=== PATIENT | male | born 1960 | race Caucasian/White ===

== ENCOUNTER 2020-08-18 08:32 | Day surgery (SDC) | payer BC, SELFPAY ==
[2020-08-18] VITALS (9 sets, daily range): BP systolic 122–156; BP diastolic 88–102; PULSE 61–95; RESP 16; TEMP 36.2–36.9; O2SAT 94–100; BMI 33.8
[2020-08-18] MEDS: Lactated Ringers 1,000 ML 100 ML IV (09:19)
--- NOTE | 2020-08-18 10:24 | PCM.HP.STD ---
History of Present Illness Date of Admission: 08/18/20 Chief Complaint: Right ureteral calculi The patient is a 60 year old male with a distal right ureteral calculi presents today for ureteroscopy laser and extraction of stone and still having pain in the right side he has not seen a stone. Past Medical History Allergies bee pollen Allergy (Verified 08/10/20 10:11) Anaphylaxis Penicillins Allergy (Verified 08/10/20 10:10) Swelling Home Medications: Ambulatory Orders Medication Instructions Recorded Ciprofloxacin [Cipro] 500 mg PO BID 08/10/20 Oxycodone HCl/Acetaminophen 1 ea PO Q6H PRN 08/10/20 [Oxycodone-Acetaminophen 5-325] Tamsulosin HCl [Flomax] 0.4 mg PO DAILY 08/10/20 Surgical History: no surgical history Smoking Status: Former smoker Tobacco Use: Non-smoker Review of Systems Constitutional: Denies: Chills, Fever, Weight Change HEENT: Denies: Head Aches, Sinus Congestion, Sinus Drainage Cardiovascular: Denies: Chest Pain, Palpitations Respiratory: Denies: Cough, Shortness of breath at rest, Sputum production Gastrointestinal: Denies: Abdominal Pain, Nausea, Vomiting Genitourinary: Denies: Dysuria Musculoskeletal: Denies: Joint Pain, Joint Tenderness Skin: Denies: Rash, Wounds Neurological: Denies: Numbness, Tingling, Focal weakness Psychiatric: Denies: Anxiety, Depression, Homicidal Ideations, Suicidal Ideations Hematologic/ Lymphatic: Denies: Easy Bruising, Easy Bleeding VTE Information - Inpt Only VTE Present on Admission: No - Physical Exam Vitals/I&O's: Vital Signs Temp Pulse Resp BP Pulse Ox 97.1 F L 72 16 156/96 H 98 08/18/20 09:02 08/18/20 09:58 08/18/20 09:02 08/18/20 09:58 08/18/20 09:02 Oxygen Delivery Method Room Air Weight: 97.976 kg Body Mass Index (BMI) 33.8 General: Alert, Oriented x3, Cooperative HEENT: Atraumatic, PERRLA, EOMI, Normocephalic Neck: Supple, No JVD, Negative Carotid Bruits Lungs: Clear to auscultation, Normal air movement Cardiovascular: Regular rate, No murmurs Abdomen: Bowel Sounds Present, Soft, Non Tender Extremities: No edema, Capillary Refill Less than 3 Seconds Skin: No rashes, No breakdown Musculoskeletal: No Tenderness to Palpation of Joints or Extremities Neurological: Cranial nerves II-XII grossly intact Psych/Mental Status: Normal Affect, Appropriate Current Medications Cefazolin Sodium 2 gm/ Sodium (Chloride) 110 mls @ 150 mls/hr IV PREOP ONE Stop: 08/18/20 11:13 Lactated Ringer's () 1,000 mls @ 100 mls/hr IV .Q10H JON Last Admin: 08/18/20 09:19 Dose: 100 mls/hr Documented by: Assessment/Plan Plan to proceed with right ureteroscopy laser of the stone removal of fragments possible stent.
[2020-08-18] MEDS: Ketorolac 15 MG/ML Vial IV (10:28)
--- NOTE | 2020-08-18 10:28 | PCM.DC.URO ---
Discharge Diet: No Restrictions, Light diet - advance as tolerated Discharge Activity: Return to Normal Activity, May Not Drive - for 2 days. Additional Activity Instructions:: Please be aware that pain medications may cause nausea. You should typically eat light foods as you take your pain medication. Pain medication may cause constipation, if this is a problem for you, please discuss with your doctor. Suture Line Care: Avoid Pulling/Pushing, Avoid Pinching/Bending Instructions: Treating Kidney Stones: Ureteroscopic Stone Removal Allergies/Adverse Reactions: Allergies bee pollen Allergy (Verified 08/10/20 10:11) Anaphylaxis Penicillins Allergy (Verified 08/10/20 10:10) Swelling Medications to take at Discharge Ciprofloxacin [Cipro] 500 mg PO BID 08/10/20 Oxycodone HCl/Acetaminophen [Oxycodone-Acetaminophen 5-325] 1 ea PO Q6H PRN 08/10/20 Tamsulosin HCl [Flomax] 0.4 mg PO DAILY 08/10/20 Ciprofloxacin [Cipro] 500 mg PO BID #6 tab 08/18/20 Hydrocodone/Acetaminophen [Hazen 5-325 Tablet] 1 each PO Q4H PRN PRN 5 Days #14 tablet 08/18/20 The following prescriptions were given: Ciprofloxacin [Cipro] 500 mg PO BID #6 tab Transmission Status: Pending to [facility]/pharmacy #[id number] Hydrocodone/Acetaminophen [Hazen 5-325 Tablet] 1 each PO Q4H PRN PRN 5 Days #14 tablet PRN Reason: Pain Score 1-10/10 Transmission Status: Received by [facility] #[id number] Primary Care Physician: Nani Terrazas DO [Primary Care Provider] - Test Results: Test results from this visit will be discussed in further detail at your follow-up appointment, if applicable. Please Follow Up With: Doc Mccarty MD When: in 2 weeks, please call to make an appointment.
[2020-08-18] MEDS: Cefazolin 2 GM in 0.9% Normal Saline 100 ML IV (10:29)
--- NOTE | 2020-08-18 10:52 | PCM.OPRPT ---
Report of Operation Date of Procedure: 08/18/20 Pre-Operative Diagnosis: Distal right ureteral calculi Post-Operative Diagnosis: Same Surgery/Procedure Performed:: Cystoscopy, balloon dilation of right ureter, right ureteroscopy. Description of Surgical Findings:: 60-year-old male was still having pain in the right side there is a recent CAT scan demonstrated a stone in distal right ureter still having pain off-and-on on the right side even required pain medicine in the preoperative area. So today working to proceed with ureteroscopy and laser of the stone we presume that he has not passed a stone. Patient was taken back to the operating room at some induction of general anesthesia he was placed in dorsolithotomy position when of the bladder with a 21 [place] rigid cystourethroscope once inside the bladder I cannulated the right ureter orifice with a Glidewire advanced a balloon dilator over the wire is a 12 [place]an centimeters balloon dilator balloon dilated the distal ureter I then went in with a semirigid ureteroscope went up as far as possible did not encounter any stone I then went over the wire with a flexible ureteroscope and I inspected all the way up to the kidney inspected the upper pole midpole lower pole the kidney worked my way all the way down the ureter there is no stone in the right collecting system no stone in the ureter. Since there was no stone he must the past it no stent was placed patient patient's bladder was drained anesthetic was reversed is taken back to PACU in good condition. Type of Anesthesia:: General Drains: none - Admit VTE Documentation VTE Present on Admission: No VTE Mechan Device Prophylaxis: SCD's
== END 2020-08-18 12:38 | disposition home or self-care (01) ==
LOC: SDC 08:33 → AC 08:33
PROVIDERS: Referring Provider Urology; Visit Provider Urology
PROC: 0TJ98ZZ Inspection of Ureter, Via Natural or Artificial Opening Endoscopic (ICD-10-PCS; CPT 52352; principal; 2020-08-18 10:30)
DX: N20.1 Calculus of ureter (principal); K44.9 Diaphragmatic hernia without obstruction or gangrene; N13.39 Other hydronephrosis; Z87.891 Personal history of nicotine dependence; Z79.899 Other long term (current) drug therapy; Z86.718 Personal history of other venous thrombosis and embolism
CPT/HCPCS: 00910; 52344; 87635; C9803; J7120; C1769; J2405; U0003

== ENCOUNTER → 2022-10-07 | Outpatient (CLI) | payer MEDICARE, SELFPAY ==
--- NOTE | 2022-10-07 12:12 | CT_ITS ---
STUDY: CT SOFT TISSUE NECK WITH CONTRAST REASON FOR EXAM: Male, 62 years old. Right-sided cervical swelling. Prior cervical spine fusion. RADIATION DOSAGE (If Supplied By Facility): CTDIvol = ( 19.32 ) mGy, DLP = ( 603.28 ) mGycm TECHNIQUE: The patient was scanned in a multi-detector CT scanner. High resolution transaxial imaging was performed following intravenous administration of IV 75mL Isovue-370. Sagittal and coronal images were reconstructed. Individualized dose optimization techniques were used for this CT. COMPARISON: None. FINDINGS: Normal bilateral parotid glands. Normal bilateral stock order lister spaces. Normal bilateral parapharyngeal spaces. Normal bilateral carotid spaces. There are multiple small submental lymph nodes. Normal bilateral sublingual and submandibular glands and spaces. Normal visualized nasopharynx. Normal retropharyngeal space. Normal perivertebral space. Normal visualized bilateral faucial tonsils. The visualized tongue, tongue base and oropharynx are normal. There are minimally enlarged lymph nodes of the neck, with preservation of normal lindsey architecture, consistent with a reactive lymph hyperplasia. There is no demonstrated solid or cystic mass lesion. There is no abnormal contrast enhancement. Normal epiglottis, bilateral vallecula and hypopharynx. The pre-epiglottic and paraglottic adipose spaces are normal. Normal visualized bilateral piriform sinuses, aryepiglottic folds, vocal cords, and arytenoid-cricoid articulations. Normal subglottic trachea. Normal bilateral lobes of the thyroid gland. Normal visualized pulmonary apices. Minimal calcific plaque at the origin of the left internal carotid artery. Normal visualized paranasal sinuses. Prior anterior fusion with screw and plate fixation device and prosthetic disc at the C3-C4 and C4-C5 levels. CT/Soft Tissue Neck WITH Contrast IMPRESSION: Small benign-appearing submental lymph nodes and supraclavicular lymph nodes. Prior anterior fusion at the C3-C4 and C4-C5 levels. Electronically Signed: Spencer Garrison MD at 14:41 EST ,
[2022-10-07 13:25] LABS: CREATININE FINGERSTICK < 0.9 mg/dL (0.70-1.30); EGFR FINGERSTICK > 60.0000 mL/min (>60)
== END | disposition home or self-care (01) ==
PROVIDERS: Referring Provider Otolaryngology; Visit Provider Otolaryngology
DX: R22.1 Localized swelling, mass and lump, neck (principal)
CPT/HCPCS: 70491; Q9967

== ENCOUNTER → 2025-08-22 | Outpatient (CLI) | payer MEDICARE, SELFPAY ==
--- OUTSIDE RECORDS SUMMARY | 2025-07-03 09:44 | XMS RPT_ITS ---
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 Name Role Phone JOSE SHEA, DR RIVER Bang Attending Unavailable ADRIANE BARTLETT, DR LUNA Primary Care Unavailable ADRIANE BARTLETT, DR LUNA Primary Care Unavailable ADRIANE BARTLETT, DR LUNA Attending Unavailable JANETT CHO DO Attending Unavailable ADRIANE BARTLETT, DR LUNA Primary Care Unavailable THEODORE DOBBINS DO Attending Unavailable ADRIANE BARTLETT, DR LUNA Primary Care Unavailable CORI MIMS Attending Unavailable LOBITO TINSLEY Referring Unavailable JEREMY FORREST Primary Care Unavailable PROBLEMS DATE TYPE CONDITION / CODE ATTENDING STATUS [facility] 07/03/2025 Unknown Headache, unspecified / R51.9(ICD-10) JANETT CHO DO Active [facility] 04/08/2025 Admitting Diagnosis 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 Automated exposure control, iterative reconstruction, and/or weight based adjustment of the mA/kV was utilized to reduce the radiation dose to as low as reasonably achievable. COMPARISON: None. HISTORY: ORDERING SYSTEM PROVIDED HISTORY: Reason for Exam: Headache, new onset FINDINGS: There is no intracranial hemorrhage, mass, mass effect or abnormal extra-axial fluid collection. No evidence of an acute territorial infarct. The ventricles are normal. The skull base and calvarium demonstrate no abnormality. There is mild mucosal thickening throughout the ethmoid air cells and right maxillary sinus. The mastoid air cells are clear. IMPRESSION: No acute intracranial abnormality. Paranasal sinus disease. Interpreted by: Jesu Redd MD Preliminary Report By: Jesu Redd MD Electronically signed By Jesu Redd MD Dictated Date: 07/03/2025 10:36:33 AM Prelim Date: 07/03/2025 10:38:24 AM Sign Date: 07/03/2025 10:38:24 AM Ordering Provider: JANETT CHO CBC Collected: 10:29 AM Status: F Source: [facility] TYPE CODE TESTS RESULT OUT OF RANGE REFERENCE UNITS LAB WBC(LOINC) WBC 5.4 4.5-10.8 10 3/mcL LAB RBCCT(LOINC) RBC 5.80 4.50-6.00 10 6/mcL LAB HGB(LOINC) Hgb 17.4 13.0-17.5 G/dL LAB HCT(LOINC) Hct 51.5 40.0-52.0 % LAB MCV(LOINC) MCV 88.9 81.0-100.0 fL LAB MCH(LOINC) MCH 30.1 27.0-33.0 pg LAB MCHC(LOINC) MCHC 33.8 32.0-36.0 G/dL LAB RDW(LOINC) RDW 13.9 11.5-15.5 % LAB PLT(LOINC) Platelet 371 150-450 10 3/mcL LAB MPV(LOINC) MPV 8.6 6.4-10.5 fL Performed By: #### HBSAG, HB CM, HBSAB, HCV1 #### [place] [address] #### [facility], [id number], CBC, HFP, ADIFF #### [address] [address] .AUTO DIFF Collected: 04/08/2025 10:29 AM Status: F Source: [facility] TYPE CODE TESTS RESULT OUT OF RANGE REFERENCE UNITS LAB COBY(LOINC) Neutrophil % 47.4 Low 50.0-75.0 % LAB LYM(LOINC) Lymphocyte % 33.3 20.0-40.0 % LAB MON(LOINC) Monocyte % 15.8 High 2.0-13.0 % LAB EO(LOINC) Eosinophil % 2.4 0.0-6.0 % LAB BAS(LOINC) Basophil % 1.1 0.0-2.5 % LAB ABLYM(LOINC) Lymphocyte, Absolute 1.8 0.9-4.3 10 3/mcL LAB REBECCA(LOINC) Monocyte, Absolute 0.9 0.1-1.4 10 3/mcL LAB AEOS(LOINC) Eosinophil, Absolute 0.1 0.0-0.7 10 3/mcL LAB ABAS(LOINC) Basophil, Absolute 0.1 0.0-0.3 10 3/mcL Performed By: #### HBSAG, HB CM, HBSAB, HCV1 #### [address] [address] #### [facility], 847227, CBC, HFP, ADIFF #### [place] [address] [place], [place] [address] .NEUABS Collected: 10:29 AM Status: F Source: [facility] TYPE CODE TESTS RESULT OUT OF RANGE REFERENCE UNITS LAB ANEU(LOINC) Neutrophil, Absolute 2.6 2.3-8.1 10 3/mcL Performed By: #### HBSAG, HB CM, HBSAB, HCV1 #### [address] [address] #### ANEU, 108743, CBC, HFP, ADIFF #### [address] [address] HFP Collected: 10:29 AM Status: F Source: [facility] TYPE CODE TESTS RESULT OUT OF RANGE REFERENCE UNITS LAB PROT(LOINC) Total Protein 7.3 6.4-8.2 G/dL LAB ALB(LOINC) Albumin Level 3.9 3.4-4.8 G/dL LAB GLB(LOINC) Globulin 3.4 2.7-4.4 G/dL LAB AG(LOINC) A/G Ratio 1.1 1.1-2.5 ratio LAB BILT(LOINC) Bili Total 0.6 0.2-1.0 mg/dL Result Comment: Use of this assay is not recommended for patients undergoing treatment with eltrombopag due to the potential for falsely elevated results. LAB BILAD(LOINC) Bili Direct 0.1 0.0-0.2 mg/dL Result Comment: Use of this assay is not recommended for patients undergoing treatment with eltrombopag due to the potential for falsely elevated results. LAB BILI(LOINC) Bili Indirect 0.5 mg/dL LAB AP(LOINC) Alk Phos 86 40-135 U/L LAB AST(LOINC) AST/SGOT 21 10-40 U/L LAB ALT(LOINC) ALT/SGPT 30 16-63 U/L Performed By: #### HBSAG, HB CM, HBSAB, HCV1 #### [place] [address] #### [facility], [id number], CBC, HFP, ADIFF #### [address] [address] HBSAG Collected: 10:29 AM Status: F Source: [facility] TYPE CODE TESTS RESULT OUT OF RANGE REFERENCE UNITS LAB HBSAG(LOINC) Hep B Surf Ag Non-Reactive Non-Reactive Performed By: #### HBSAG, HB CM, HBSAB, HCV1 #### [place] [address] #### [place], 868306, CBC, HFP, ADIFF #### [address] [address] HBSAB Collected: 10:29 AM Status: F Source: [facility] TYPE CODE TESTS RESULT OUT OF RANGE REFERENCE UNITS LAB HBSAB(LOINC) Hep B Surf Ab <3.1 Low >=10.0 mIU/mL Result Comment: 0 to < 10.0 mIU/mL Nonreactive Patient is considered not to have protective immunity to HBV infection >/= 10.0 mIU/mL Reactive Patient is considered to have protective immunity to HBV infection. This assay is traceable to the World Health Organization (WHO) Hepatitis B Immunoglobulin 1st International Reference Preparation (1976). The accepted criteria for immunity to HBV is anti-HBs activity >/= 10.0 mIU/mL, as defined by the WHO International Reference Preparation. Performed By: #### HBSAG, HB CM, HBSAB, HCV1 #### [place] [address] #### [facility], 585371, CBC, HFP, ADIFF #### [address] [address] HBCM Collected: 10:29 AM Status: F Source: [facility] TYPE CODE TESTS RESULT OUT OF RANGE REFERENCE UNITS LAB HBCM(LOINC) Hep B Core IgM Ab Non-Reactive Non-Reactive LAB HBCMINT(LOINC) Hep B Core IgM Ab Int Result Comment: Samples with a value < 0.80 Index are considered nonreactive (negative) for IgM antibodies to hepatitis B core antigen. See Interp Performed By: #### HBSAG, HB CM, HBSAB, HCV1 #### [place] [id number] #### [place], 960814, CBC, HFP, ADIFF #### [address] [address] HCV Collected: 5 10:29 AM Status: F Source: [facility] TYPE CODE TESTS RESULT OUT OF RANGE REFERENCE UNITS LAB HCV(LOINC) Hep C Ab Non-Reactive Non-Reactive LAB HCV1(LOINC) Hep C Ab Int Result Comment: Nonreactive: Samples with a value < 0.80 are considered nonreactive (negative) for antibodies to HCV. A negative test result does not exclude the possibility of exposure to or infection with HCV. HCV antibodies may be undetectable in some stages of the infection and in some clinical conditions. See Interp Performed By: #### HBSAG, HB CM, HBSAB, HCV1 #### [place] [address] #### [place], 684804, CBC, HFP, ADIFF #### [address] [address] QUANTTB Collected: 5 10:29 AM Status: F Source: [facility] TYPE [facility] RESULT OUT OF RANGE REFERENCE UNITS LAB 063827([facility]) QFT Criteria Comment Result Comment: QuantiFERON-TB Gold Plus is a qualitative indirect test for M tuberculosis infection (including disease) and is intended for use in conjunction with risk assessment, radiography, and other medical and diagnostic evaluations. The QuantiFERON-TB Gold Plus result is determined by subtracting the Nil value from either TB antigen (Ag) value. The Mitogen tube serves as a control for the test. LAB 072037(LOINC) QFT TB1 Ag Value 0.07 IU/mL LAB 414567(LOINC) QFT TB2 Ag Value 0.07 IU/mL LAB 670030(LOINC) QFT Nil Value 0.05 IU/mL LAB 354603(LOINC) QFT Mitogen Value >10.00 IU/mL LAB 328124(LOINC) QFT-TB Gold Plus Clt Inc Negative Negative Result Comment: No response to M tuberculosis antigens detected. Infection with M tuberculosis is unlikely, but high risk individuals should be considered for additional testing (ATS/IDSA/CDC Clinical Practice Guidelines, 2017). The reference range is an Antigen minus Nil result of <0.35 IU/mL. The specimen received for QuantiFERON testing was incubated by the ordering institution. Specific procedures outlined in our Directory of Services and in the package insert for the QuantiFERON Gold (In Tube) test must be followed to enable for proper stimulation of cells for the production of interferon gamma. Chemiluminescence immunoassay methodology Performed At: [facility] [id number] Joel Simeon PhD Ph:[phone] Performed By: #### HBSAG, HB CM, HBSAB, HCV1 #### [place] [address] #### ANEU, 303660, CBC, HFP, ADIFF #### [address] [address] CBC Collected: 10:19 AM Status: F Source: [facility] TYPE CODE TESTS RESULT OUT OF RANGE REFERENCE UNITS LAB WBC(LOINC) WBC 11.3 High 4.5-10.8 10 3/mcL LAB RBCCT(LOINC) RBC 5.37 4.50-6.00 10 6/mcL LAB HGB(LOINC) Hgb 16.1 13.0-17.5 G/dL LAB HCT(LOINC) Hct 46.9 40.0-52.0 % LAB MCV(LOINC) MCV 87.4 81.0-100.0 fL LAB MCH(LOINC) MCH 30.0 27.0-33.0 pg LAB MCHC(LOINC) MCHC 34.4 32.0-36.0 G/dL LAB RDW(LOINC) RDW 14.5 11.5-15.5 % LAB PLT(LOINC) Platelet 320 150-450 10 3/mcL LAB MPV(LOINC) MPV 8.1 6.4-10.5 fL Performed By: #### GFR, ADIF F, PSA, LIPID, CMP, CBC, TSH, ANEU #### [address] [address] .AUTO DIFF Collected: 01/07/2025 10:19 AM Status: F Source: [facility] TYPE CODE TESTS RESULT OUT OF RANGE REFERENCE UNITS LAB COBY(LOINC) Neutrophil % 66.2 50.0-75.0 % LAB LYM(LOINC) Lymphocyte % 21.1 20.0-40.0 % LAB MON(LOINC) Monocyte % 11.4 2.0-13.0 % LAB EO(LOINC) Eosinophil % 0.9 0.0-7.0 % LAB BAS(LOINC) Basophil % 0.4 0.0-2.5 % LAB ABLYM(LOINC) Lymphocyte, Absolute 2.4 0.9-4.3 10 3/mcL LAB REBECCA(LOINC) Monocyte, Absolute 1.3 0.1-1.4 10 3/mcL LAB AEOS(LOINC) Eosinophil, Absolute 0.1 0.0-0.7 10 3/mcL LAB ABAS(LOINC) Basophil, Absolute 0.0 0.0-0.2 10 3/mcL Performed By: #### GFR, ADIF F, PSA, LIPID, CMP, CBC, TSH, ANEU #### [address] [address] .NEUABS Collected: 10:19 AM Status: F Source: [facility] TYPE CODE TESTS RESULT OUT OF RANGE REFERENCE UNITS LAB ANEU(LOINC) Neutrophil, Absolute 7.5 2.3-8.1 10 3/mcL Performed By: #### GFR, ADIF F, PSA, LIPID, CMP, CBC, TSH, ANEU #### [address] [address] PSA Collected: 01/07/2025 10:19 AM Status: F Source: [facility] TYPE CODE TESTS RESULT OUT OF RANGE REFERENCE UNITS LAB PSA(LOINC) Prostate Specific Antigen 0.77 0.00-4.00 ng/mL Performed By: #### GFR, ADIF F, PSA, LIPID, CMP, CBC, TSH, ANEU #### [address] [address] TSH Collected: 10:19 AM Status: F Source: [facility] TYPE CODE TESTS RESULT OUT OF RANGE REFERENCE UNITS LAB TSH(LOINC) TSH 2.71 0.36-3.74 mcIU/mL Performed By: #### GFR, ADIF F, PSA, LIPID, CMP, CBC, TSH, ANEU #### [address] [address] CMP Collected: 01/07/2025 10:19 AM Status: F Source: [facility] TYPE CODE TESTS RESULT OUT OF RANGE REFERENCE UNITS LAB GLU(LOINC) Glucose Level 102 80-115 mg/dL LAB NA(LOINC) Sodium Level 139 136-145 mmol/L LAB K(LOINC) Potassium Level 3.5 3.5-5.1 mmol/L LAB CL(LOINC) Chloride 104 98-107 mmol/L LAB CO2(LOINC) CO2 25 23-31 mmol/L LAB EBAL(LOINC) Electrolyte Balance 10.0 4.0-15.0 mEq/L LAB BUN(LOINC) BUN 18 7-18 mg/dL LAB CRE(LOINC) Creatinine Lvl (s) 0.95 0.70-1.30 mg/dL Result Comment: Testing perf ormed on Siemens Dimension EXL analyzer using a modified kinetic Sury technique. LAB BC(LOINC) BUN/Creatinine Ratio 19 7-27 ratio LAB CA(LOINC) Calcium Lvl 9.0 8.4-10.2 mg/dL LAB PROT(LOINC) Total Protein 7.3 6.4-8.2 G/dL LAB ALB(LOINC) Albumin Level 4.0 3.4-4.8 G/dL LAB GLB(LOINC) Globulin 3.3 1.5-3.8 G/dL LAB AG(LOINC) A/G Ratio 1.2 1.1-2.5 ratio LAB BILT(LOINC) Bili Total 0.7 0.2-1.0 mg/dL Result Comment: Use of this assay is not recommended for patients undergoing treatment with eltrombopag due to the potential for falsely elevated results. LAB AP(LOINC) Alk Phos 65 40-135 U/L LAB AST(LOINC) AST/SGOT 17 10-40 U/L LAB ALT(LOINC) ALT/SGPT 18 16-63 U/L Performed By: #### GFR, ADIF F, PSA, LIPID, CMP, CBC, TSH, ANEU #### [address] [address] .GFR Collected: 10:19 AM Status: F Source: [facility] TYPE CODE TESTS RESULT OUT OF RANGE REFERENCE UNITS LAB eGFR(LOINC) Estimated Glomerular Filtration Rate 88 ml/min/1. 73sqm Result Comment: Stages of Chronic Kidney Disease (CKD) Stage Description eGFR(ml/min/1.73 sq.m.) CKD 1 Normal kidney function or >=90 normal kindney function with possible kidney damage (ex. Proteinuria) CKD 2 Kidney damage with mild loss 60-89 of kidney function CKD 3a Mild to moderate loss of kidney 45-59 function CKD 3b Moderate to severe loss of 30-44 of kindey function CKD 4 Severe loss of kidney function 15-29 CKD 5 Kidney failure <15 Note: (go live 2024) the eGFR calculation was updated to the 2020 CKD-EPI creatinine equation without a race factor to calculate the eGFR results. Performed By: #### GFR, ADIF F, PSA, LIPID, CMP, CBC, TSH, ANEU #### [address] [address] LIPID Collected: 01/07/2025 10:19 AM Status: F Source: [facility] TYPE CODE TESTS RESULT OUT OF RANGE REFERENCE UNITS LAB CHOL(LOINC) Cholesterol 199 0-200 mg/dL Result Comment: Cholesterol Reference Interval: Less than 200 Desirable 200-239 Borderline high risk 240 and above High risk LAB TRIG(LOINC) Triglycerides 62 0-150 mg/dL Result Comment: Triglyceride Reference Interval: Less than 150 Normal 150-199 Borderline high risk 200-499 High risk 500 or higher Very high risk LAB HD(LOINC) HDL Cholesterol 60 40-60 mg/dL LAB LDL(LOINC) LDL Cholesterol 127 0-130 mg/dL Performed By: #### GFR, ADIF F, PSA, LIPID, CMP, CBC, TSH, ANEU #### [place] [address] [place], [place] [address] NURSING PROG Observed: 09/29/2024 11:46 AM Status: COMPLETED Source: [facility] ID: [id number] Author: PILAR SULLIVAN RN Service: ? Author Type: Registered Nurse Type: Nursing Progress Note Filed: 09/29/2024 11:46 Note Text: Physician at bedside to discuss procedure/findngs with patient. KARTHIK POSTPROC EVAL Observed: 09/29/2024 11:44 AM Status: COMPLETED Source: [facility] HNO ID: [id number] Author: CARLIN GALLEGO APRN.CRNA Service: Anesthesiology Author Type: Nurse Dry Plasterer Type: Anesthesia Postprocedure Evaluation Filed: 09/29/2024 11:45 Note Text: POST ANESTHESIA EVALUATION NOTE : 1960 Procedure Summary Date: 09/29/24 Room / Location: Ambulatory Surgery Anesthesia Start: 1032 Anesthesia Stop: 1100 Procedures: EGD DIAGNOSTIC COLONOSCOPY DIAGNOSTIC Diagnosis: Abnormal weight loss History of colonic polyps (Weight loss) (Screening for colorectal malignant neoplasm) Scheduled Providers: Cori Mims MD Responsible Provider: Carlin Gallego APRN.CRNA Anesthesia Type: MAC ASA Status: 2 Anesthesia Type: MAC Last Vitals Vitals Value Taken Time BP 139/85 09/29/24 1116 Temp 36.3 ?C (97.4 ?F) 09/29/24 1100 Pulse 63 09/29/24 1116 Resp 16 09/29/24 1116 SpO2 96 % 09/29/24 1116 Post Anesthesia Patient Status Patient Evaluation: PACU. PACU/ICU Patient Condition: stable. Neurological Status: aware and responsive. Pulmonary Status: breathing comfortably on room air Airway Control: returned to baseline unsupported. Cardiovascular Status: stable. Pain Management: clinically adequate - multimodal analgesia pain management approach Postoperative Hydration: acceptable. Intraoperative Events: no significant anesthesia events Post Operative Nausea/Vomiting Status: no significant post operative nausea or vomiting Recommendation: continue current plan of care. Anesthesia Observations No Documentation SIGNATURE: Carlin Gallego APRN.RETAIL TIRE SALES MANAGER PATIENT NAME: Boston Banuelos DATE: September 29, 2024 TIME: 11:44 AM CSN: [id number] NURSING PROG Observed: 09/29/2024 11:18 AM Status: COMPLETED Source: [facility] HNO ID: [id number] Author: PILAR SULLIVAN RN Service: ? Author Type: Registered Nurse Type: Nursing Progress Note Filed: 09/29/2024 11:18 Note Text: Pt states readiness for discharge. Assisted with dressing. [id number] Observed: 09/29/2024 11:05 AM Status: COMPLETED Source: [facility] HNO ID: [id number] Author: PILAR SULLIVAN RN Service: ? Author Type: Registered Nurse Type: [id number] Filed: 09/29/2024 11:05 Note Text: The patient received a copy of Colonoscopy and EGD discharge instructions that contain information for how to contact the physician who performed the procedure and when to seek medical care. SURGICAL PATHOLOGY Collected: 10:38 AM Status: C Source: [facility] Order Comment: Specimen Type : TISSUE SPECIMEN Ordering Facility: [facility] Address: [address] [place] [address] TYPE CODE TESTS RESULT OUT OF RANGE REFERENCE UNITS PATHOLOGY [id number] CASE REPORT Result Comment: Surgical Pat hology Report Case: [id number] Authorizing Provider: Cori Mims MD Collected: 09/29/2024 10:38 AM Ordering Location: Ambulatory Surgery Received: 09/29/2024 09:17 PM Pathologist: Willy Shelton MD Specimens: A) - Small Bowel, Duodenum, Biopsy B) - Stomach, Biopsy C) - Esophagus, Biopsy D) - Colon, Transverse, Polyp E) - Colon, Descending, Polyp PATHOLOGY [id number] FINAL DIAGNOSIS Result Comment: A. Duodenum, biopsy: -Small intestinal mucosa with no diagnostic alteration -No evidence of celiac disease B. Stomach, biopsy: -Antral mucosa with no diagnostic alteration -No morphologic evidence of Helicobacter pylori C. Esophagus, biopsy: -Active esophagitis, see comment D. Transverse colon, polypectomy: -Tubular adenoma E. Descending colon, polypectomy: -Fragments of tubular adenoma OLOGY [id number] DIAGNOSIS COMMENT Given the presence of active esophagitis, stains for fungus and HSV will be obtained. The results will be reported in an addendum. PATHOLOGY [id number] GROSS DESCRIPTION Result Comment: A. Small [place] el, Duodenum, Biopsy Received in formalin is one piece of peters, soft tissue measuring 0.4 x 0.3 x 0.2 cm. Totally submitted in one cassette. B. Stomach, Biopsy Received in formalin are two pieces of peters, soft tissue aggregating to 0.8 x 0.3 x 0.2 cm. Totally submitted in one cassette. C. Esophagus, Biopsy Received in formalin is one piece of peters-white, soft tissue measuring 0.5 x 0.3 x 0.2 cm. Totally submitted in one cassette. D. Colon, Transverse, Polyp Received in formalin is one piece of peters-pink to red, soft tissue measuring 0.4 x 0.3 x 0.2 cm. Totally submitted in one cassette. E. Colon, Descending, Polyp Received in formalin are multiple pieces of peters, soft tissue aggregating to 1.7 x 0.5 x 0.2 cm. Totally submitted in two cassettes. Gross examination performed at [facility], [address] [place] [address] 09/29/2024 11:11 PM PATHOLOGY [facility] FINAL PERFORMING LAB Result Comment: Diagnostic i nterpretation performed at [facility], [address] [place] [address] CLIA# [id number] Torch Solderer: Dakota Bangura M.D. PATHOLOGY ADD1 ADDENDUM 1: Result Comment: On the esoph ageal specimen, stains for fungus (PAS) and HSV are both negative. Laboratory Developed Test (LDT) Disclaimer: Performance characteristics of immunohistochemical, immunofluorescent and chromogenic in-situ hybridization tests have been determined by the performing laboratory within [facility]???s Alvarado Santacruz Pathology and Laboratory Medicine Department ([facility], [facility], [facility], [facility], [facility], [facility], or [facility]) in a manner consistent with CLIA requirements. One or more of these tests have not been cleared or approved by the FDA. [facility] is regulated under CLIA as qualified to perform high-complexity testing. These tests are used for clinical purposes. They should not be regarded as investigational or for research. Positive and negative controls stain appropriately. Addendum electronically signed by Willy Shelton MD on 10/04/2024 at 5:11 PM Performed By: #### S #### [facility] CLIA [id number] [address] [place] [address] [id number], [place] [address] [place] HISTORY PHYSICAL Observed: 09/29/2024 10:30 AM Status: COMPLETED Source: [facility] HNO ID: [id number] Author: CORI MIMS MD Service: Gastroenterology Author Type: Physician Type: H&P Filed: 09/29/2024 10:08 Note Text: Endoscopy pre-operative HANDP HANDP completed prior to the start time of the procedure. IMPRESSION AND PLAN HPI: This is a 64 year old male. For EGD and colonoscopy for GERD and weight loss. Pertinent Review of Systems: GI: See HPI All other reviewed and negative other than HPI. PAST MEDICAL HISTORY: PAST MEDICAL HISTORY Diagnosis Date Arthritis Back pain Colon polyp, hyperplastic Diaphragmatic hernia GERD (gastroesophageal reflux disease) Hemorrhoids IBS (irritable bowel syndrome) PAST SURGICAL HISTORY: PAST SURGICAL HISTORY Procedure Laterality Date CHOLECYSTECTOMY COLONOSCOPY 06/27/2016 hyperplastic rectal polyp EGD 09/19/2016 gaping LES, Schatzki's ring, sm hiatal hernia, gastritis, neg H Pylori HEMORRHOIDECTOMY PAST SURGICAL HISTORY OF total replacment of left hip TONSILLECTOMY AND ADENOIDECTOMY HX OBJECTIVE: PHYSICAL EXAM: VITALS: There were no vitals taken for this visit. General appearance: AANDOx3 Respiratory: Normal chest expansion. No audible wheezes. CVS: No shortness of breath, no extremity edema. Regular pulse. Plan: OK to proceed with endoscopy. SIGNATURE: Cori Mims MD PATIENT NAME: Boston Banuelos UPPER GI ENDOSCOPY Observed: 09/29/2024 10:23 AM Status: F Source: [facility] Gastroenterology Gastrointestinal Endoscopy Patient Name: Boston Banuelos Procedure Date: 09/29/2024 10:23 AM Date of : 1960 Admit Type: Outpatient Age: 64 Room: [facility] 2 Gender: Male Note Status: Finalized Attending MD: Cori Mims MD, [id number] Procedure: Upper GI endoscopy Indications: Weight loss Providers: Cori Mims MD Patient Profile: Refer to note in patient chart for documentation of history and physical. Referring Physician: Lobito Tinsley (Referring ) Medicines: Monitored Anesthesia Care Complications: No immediate complications. Estimated blood loss: Minimal. Requesting Provider: Procedure: Pre-Anesthesia Assessment: - Prior to the procedure, a History and Physical was performed, and patient medications and allergies were reviewed. The patient's tolerance of previous anesthesia was also reviewed. The risks and benefits of the procedure and the sedation options and risks were discussed with the patient. All questions were answered, and informed consent was obtained. Prior Anticoagulants: The patient has taken no anticoagulant or antiplatelet agents. ASA Grade Assessment: See anesthesia record. After reviewing the risks and benefits, the patient was deemed in satisfactory condition to undergo the procedure. After obtaining informed consent, the endoscope was passed under direct vision. Throughout the procedure, the patient's blood pressure, pulse, and oxygen saturations were monitored continuously. The Colonoscope was introduced through the mouth, and advanced to the second part of duodenum. I was present and participated during the entire procedure, including non-mckeon portions, and during the administration and monitoring of Moderate Sedation. The upper GI endoscopy was accomplished without difficulty. The patient tolerated the procedure well. Moderate Sedation: MAC anesthesia was administered by the anesthesia team. Findings: The Z-line was regular and was found 44 cm from the incisors. LA Grade A (one or more mucosal breaks less than 5 mm, not extending between tops of 2 mucosal folds) esophagitis with no bleeding was found in the lower third of the esophagus. Biopsies were taken with a cold forceps for histology. A non-obstructing Schatzki ring was found in the lower third of the esophagus. A 2 cm hiatal hernia was present. The examined duodenum was normal. Impression: - Z-line regular, 44 cm from the incisors. - LA Grade A reflux esophagitis with no bleeding. Biopsied. - Non-obstructing Schatzki ring. - 2 cm hiatal hernia. - Normal examined duodenum. Recommendation: - Patient has a contact number available for emergencies. The signs and symptoms of potential delayed complications were discussed with the patient. Return to normal activities tomorrow. Written discharge instructions were provided to the patient. - Resume previous diet. - Continue present medications. - Await pathology results. Procedure Code(s): --- Professional --- 82220, Esophagogastroduodenoscopy, flexible, transoral; with biopsy, single or multiple CPT copyright 2020 [employer]. All rights reserved. The codes documented in this report are preliminary and upon driver retraining instructor review may be revised to meet current compliance requirements. Attending Participation: I was present and participated during the entire procedure from insertion to removal of the endoscope. Scope In: 10:36:59 AM Scope Out: 10:41:13 AM MD Cori Wright MD 09/29/2024 10:43:56 AM This report has been signed electronically by Cori Mims MD Number of Addenda: 0 Note Initiated On: 09/29/2024 10:23 AM Estimated Blood Loss: Estimated blood loss was minimal. COLONOSCOPY Observed: 09/29/2024 10:23 AM Status: C Source: [facility] Gastroenterology Gastrointestinal Endoscopy Patient Name: Boston Banuelos Procedure Date: 09/29/2024 10:23 AM Date of : 1960 Admit Type: Outpatient Age: 64 Room: [place] [address] Gender: Male Note Status: Net Repairer Override Attending MD: Cori Mims MD, [id number] Procedure: Colonoscopy Indications: Screening for colorectal malignant neoplasm Providers: Cori Mims MD Patient Profile: Refer to note in patient chart for documentation of history and physical. Last Colonoscopy: more than 10 years ago. Referring Physician: Lobito Tinsley (Referring MD) Medicines: Monitored Anesthesia Care Complications: No immediate complications. Requesting Provider: Procedure: Pre-Anesthesia Assessment: - Prior to the procedure, a History and Physical was performed, and patient medications and allergies were reviewed. The patient's tolerance of previous anesthesia was also reviewed. The risks and benefits of the procedure and the sedation options and risks were discussed with the patient. All questions were answered, and informed consent was obtained. Prior Anticoagulants: The patient has taken no anticoagulant or antiplatelet agents. ASA Grade Assessment: See anesthesia record. After reviewing the risks and benefits, the patient was deemed in satisfactory condition to undergo the procedure. After I obtained informed consent, the scope was passed under direct vision. Throughout the procedure, the patient's blood pressure, pulse, and oxygen saturations were monitored continuously. The Colonoscope was introduced through the anus and advanced to the terminal ileum. I was present and participated during the entire procedure, including non-mckeon portions, and during the administration and monitoring of Moderate Sedation. The colonoscopy was performed without difficulty. The patient tolerated the procedure well. The quality of the bowel preparation was excellent. The ileocecal valve, appendiceal orifice, and rectum were photographed. Moderate Sedation: MAC anesthesia was administered by the anesthesia team. Findings: The perianal and digital rectal examinations were normal. A 3 mm polyp was found in the transverse colon. The polyp was sessile. The polyp was removed with a cold biopsy forceps. Resection and retrieval were complete. An 11 mm polyp was found in the descending colon. The polyp was sessile. The polyp was removed with a hot snare. Resection and retrieval were complete. Multiple small-mouthed diverticula were found in the sigmoid colon. The exam was otherwise normal throughout the examined colon. Impression: - One 3 mm polyp in the transverse colon, removed with a cold biopsy forceps. Resected and retrieved. - One 11 mm polyp in the descending colon, removed with a hot snare. Resected and retrieved. - Diverticulosis in the sigmoid colon. Recommendation: - Patient has a contact number available for emergencies. The signs and symptoms of potential delayed complications were discussed with the patient. Return to normal activities tomorrow. Written discharge instructions were provided to the patient. - Resume previous diet. - Continue present medications. - Repeat colonoscopy in 3 years for screening purposes. - Await pathology results. - Return to referring physician as previously scheduled. Procedure Code(s): --- Professional --- 48574, Colonoscopy, flexible; with removal of tumor(s), polyp(s), or other lesion(s) by snare technique 63986, 59, Colonoscopy, flexible; with biopsy, single or multiple CPT copyright 2020 [employer]. All rights reserved. The codes documented in this report are preliminary and upon driver retraining instructor review may be revised to meet current compliance requirements. Attending Participation: I personally performed the entire procedure. Scope In: 10:44:59 AM Scope Out: 10:55:14 AM MD Cori Wright MD 09/29/2024 10:57:13 AM This report has been signed electronically by Cori Mims MD Number of Addenda: 0 Note Initiated On: 09/29/2024 10:23 AM Estimated Blood Loss: Estimated blood loss was minimal. ANES PRE-OP Observed: 09/14/2024 11:18 AM Status: COMPLETED Source: [facility] HNO ID: [id number] Author: CARLIN GALLEGO APRN.CRNA Service: Anesthesiology Author Type: Nurse Dry Plasterer Type: Anesthesia Preprocedure Evaluation Filed: 09/29/2024 10:28 Note Text: ANESTHESIOLOGY DAY OF SURGERY NOTE : 1960 Procedure Information Date/Time: 09/29/24 1030 Scheduled providers: Cori Mims MD Procedures: EGD DIAGNOSTIC COLONOSCOPY DIAGNOSTIC Location: Ambulatory Surgery Estimated body mass index is 31.17 kg/m? as calculated from the following: Height as of 07/30/24: 170.2 cm (5' 7"). Weight as of 07/30/24: 90.3 kg (199 lb). Most recent hematocrit and potassium results: No results found for this basename: HCT,HEMATOCRIT,K,POTASSIUM Relevant Problems No relevant active problems I - PHYSICAL EVALUATION AIRWAY Patient intubated: No. Tracheostomy tube not present Mallampati: II. TM distance: >3 FB. Neck ROM: full ROM without neurological symptoms. Mouth opening: adequate. Short neck: no. Thick neck: yes II - ANESTHESIA PLAN ASA Score: 2 Anesthetic Plan: MAC The patient is not a current smoker. NPO Status: adequate Beta Madisyn Monitoring Plan Monitoring plan: standard ASA. Post Procedure Analgesic Plan Postoperative analgesic plan: multimodal analgesia. Informed Consent Anesthetic risks, benefits, alternatives, personnel and consent discussed: yes. Patient / Responsible Alliance Party agrees to proceed: yes Patient / Surrogate agrees to blood products: blood products not planned DNR status not reviewed with patient and/or family prior to surgery. Significant changes in the patient condition since the History and Physical, not otherwise documented in primary service progress note: no. Potential Anesthesia issues that may suggest increased risk of complications or contraindication to planned procedure: none. No vitals data found for the desired time range. Outpatient Medications as of 09/29/2024 Medication Sig latanoprost (XALATAN) 0.005 % ophthalmic solution INSTILL 1 DROP INTO BOTH EYES EVERY DAY fluticasone (FLONASE) 50 mcg/actuation nasal spray ketoconazole (NIZORAL) 2 % shampoo multivitamin (MULTIPLE VITAMIN ORAL) Take by mouth. No current facility-administered medications on file as of 09/29/2024. I have interviewed and examined the patient. I have reviewed the medical record and/or the pre-anesthesia evaluation, pertinent labs, and test results. This contains updated information obtained within 48 hours of Surgery/Procedure. SIGNATURE: Cady Jones APRN.CRNA PATIENT NAME: Boston Banuelos DATE: September 14, 2024 TIME: 11:18 AM CSN: [id number] ALLERGIES DATE TYPE / CODE NAME / CODE REACTION SEVERITY SOURCE 08/18/2018 Environ/[id number]( SNOMED CT) BEE STING ANAPHYLAXIS [facility] 08/17/2018 DRUG INGREDI/[id number]( SNOMED CT) PENICILLIN ANAPHYLAXIS [facility] ENCOUNTERS ADMIT/DISCHARGE ACCOUNT NUMBER ADMITTING ENCOUNTER CLASS LOCATION SOURCE 07/03/2025/ 5 [id number] [facility] 04/08/2025/ 5 [id number] Amb[facility] DROP [facility] 03/21/2025/ 5 [id number] [facility] RAD [facility] 01/07/2025/ 5 [id number] Ambulatory [facility] OLAB [facility] 09/29/2024/ 4 [id number] [facility]AS[facility] PAYERS ENCOUNTER GUARANTOR PAYER SUBSCRIBER SOURCE 07/03/2025 BOSTON BANUELOSB: [id number] [place] [address]rut [email or web address] l: (HP) Primary Insurance:Symvato [facility]ITAL[facility]icy Number: [id number] e Date:6359-09-01Qwgd Name:[place] [id number], [place] [address]MQ: BOSTON BANUELOSB: [id number] [place] [address]Rbw: (HP) () [facility] 04/08/2025 [facility]: [id number] [place] [email or web address] l: (HP) Primary Insurance:[employer] BLUE CROSS INSCOPolicy Number: [id number] e Date:2071-18-65Criy Name:[place] [id number]: [facility]: [id number] [place] [address]Usv: (HP) (WP) [facility] 03/21/2025 [facility]: [id number] [place] [email or web address] l: (HP) Primary Insurance:[employer] BLUE CROSS INSCOPolicy Number: [id number] e Date:8231-83-74Auty Name:[place] [address]VZ: [facility]: [id number] [place] [address]Grs: (HP) (WP) [facility] 01/07/2025 [facility]: [id number] [place] [email or web address] l: (HP) Primary Insurance:[employer] BLUE CROSS INSCOPolicy Number: [id number] e Date:3957-37-43Kaed Name:[place] [address]FF: Man GREEN: [id number] [place] [address]Cfp: () (WP) [facility] 09/29/2024 Primary Insurance:[employer] MED[employer] ADVANTAGE PPOPolicy Number: [id number] e Date:6184-53-18Kxdg Name:Siddharth GREEN: [id number] [place] [address] [facility]
--- NOTE | 2025-08-22 07:41 | CT_ITS ---
PROCEDURE: SOFT TISSUE NECK WITH CONTRAST 08/22/2025 REASON FOR EXAM: RIGHT NECK MASS Personal history cervical spine fusion. Headaches for 6 months. TECHNIQUE: Procedure Code: CTNEW Modality: CT Procedure: SOFT TISSUE NECK WITH CONTRAST CONTRAST: Isovue 370 VOLUME: 68 mL One or more dose reduction techniques were used (e.g., Automated exposure control, adjustment of the mA and/or kV according to patient size, use of iterative reconstruction technique). RADIATION DOSE SUMMARY: CTDlvol: 16 mGy DLP: 503 mGycm COMPARISON: October 07, 2022 FINDINGS: Airway: Patent. Vocal cords are symmetric. Salivary glands: Normal. Lymph nodes: None appear enlarged. In particular, the submental, submandibular and supraclavicular lymph nodes described on prior are normal. Thyroid: Normal Vasculature: Mild atherosclerotic plaque of the proximal internal carotid arteries bilaterally. Less than 15% narrowing bilaterally. Otherwise the vessels of the neck are patent. Review of the prior exam showed a marker along the right neck indicated an area of palpable concern. An asymmetrically dominant, right facial vein is present that lies immediately superficial to the anterolateral aspect of the sternocleidomastoid and is likely palpable; this is normal. No mass or lymph node is seen there. Orbits: Normal Paranasal sinuses and mastoids: Clear Lung apices: Clear Upper mediastinum: Normal Bones: Anterior cervical fusion of C3-C5 with disc spacers in place. Degenerative change to include disc space narrowing, marginal endplate spurring and uncinate spurring C5/6, C6/7 and T1/T2. CT/Soft Tissue Neck WITH Contrast IMPRESSION: 1. No mass or lymphadenopathy. 2. The area of palpable concern is favored to represent a dominant right facia l vein that lies immediately superficial to the anterolateral aspect of the sternocleidomastoid. This is a normal structure. Reading Location: [id number]
== END | disposition home or self-care (01) ==
LOC: CT 07:39
PROVIDERS: Referring Provider Otolaryngology; Visit Provider Otolaryngology
DX: R22.1 Localized swelling, mass and lump, neck (principal)
CPT/HCPCS: 70491; Q9967